=== PATIENT | female | born 1960 | race Caucasian/White ===

== ENCOUNTER 2022-02-19 00:53 | Emergency (ER) | payer OTHER ==
[~2022-02-19] VITALS: Ht 152.4 cm; Wt 41.7 kg
--- NOTE | 2022-02-19 00:55 | NUR ---
Dr. Sumner at bedside for MSE.
[2022-02-19] MEDS ORDERED: PROPOFOL 1,000 MG/100 ML BOTTLE IV ONE (01:15)
[2022-02-19] MEDS ORDERED: IV NORMAL SALINE 500 ML IV ONE (01:15)
[2022-02-19] MEDS ORDERED: FENTANYL CITRATE 100 MCG/2 ML AMPUL IV ONE (01:15)
--- NOTE | 2022-02-19 01:30 | NUR ---
Pt signed consent form for right wrist reduction procedure.
[2022-02-19] MEDS ORDERED: PROPOFOL 100 ML ONE (01:38)
[2022-02-19] MEDS ORDERED: FENTANYL CITRATE 100 MCG/2 ML AMPUL ONE (01:38)
--- NOTE | 2022-02-19 01:45 | NUR ---
RT at bedside.
--- NOTE | 2022-02-19 01:50 | NUR ---
50 mcg fentanyl given
--- NOTE | 2022-02-19 01:52 | NUR ---
40 mg propofol given
--- NOTE | 2022-02-19 01:53 | NUR ---
Dr. Sumner performed wrist reduction, wrist splinted
[2022-02-19] MEDS ORDERED: ACET1TAB23 PO (02:01)
--- NOTE | 2022-02-19 02:03 | NUR ---
Xray at bedside to confirm wrist reduction.
--- NOTE | 2022-02-19 02:10 | NUR ---
Pt is awake and alert, no acute signs of distress, VSS.
--- NOTE | 2022-02-19 03:50 | NUR ---
Patient discharged to home in stable condition. Written and verbal after care instructions given. Patient verbalizes understanding of instructions. Stressed follow up or return to ER for worsening s/s. Patient out of ER with steady gait, taxi voucher in hand, no acute signs of distress, VSS, all belongings taken, IV site discontinued, provided with CD of images, to be driven home via taxi.
[2022-02-19 05:47] VITALS: BP 147/78
== END 2022-02-19 05:48 | disposition home or self-care (01) ==
LOC: ER 00:53
DX: S52.511A Displaced fracture of right radial styloid process, initial encounter for closed fracture (principal); W07.XXXA Fall from chair, initial encounter; Y92.89 Other specified places as the place of occurrence of the external cause
CPT/HCPCS: 25605; 99285; 73110 ×2; J3010; J7040; A4663; J3490